=== PATIENT | male | born 1990 | race Caucasian/White ===

== ENCOUNTER 2021-08-17 22:27 | Emergency (ER) | payer OTHER ==
[~2021-08-17] VITALS: Ht 175.3 cm; Wt 79.5 kg
[2021-08-17 22:39] VITALS: TEMP 98.5
[2021-08-17 23:19] LABS: BASO # 0.1 K/mm3 (0.0-0.2); EOS # 0.2 K/mm3 (0.0-0.7); GRAN # 2.9 K/mm3 (1.4-6.5); GRAN % 48.3 % (42.2-75.2); HEMATOCRIT 37.3 % (42.0-52.0); HEMOGLOBIN 12.8 g/dl (13.5-18.0); LYMPH # 2.5 K/mm3 (1.2-3.4); LYMPH % 41.7 % (20.0-51.0); MEAN CELL VOLUME 89 fl (80.0-100.0); MEAN CORPUSCULAR HEMOGLOBIN 31 pg (27-31); MEAN CORPUSCULAR HGB CONC 34 g/dl (33.0-37.0); MEAN PLATELET VOLUME 11.1 fl (7.4-10.4); MONO # 0.4 K/mm3 (0.1-0.6); MONO % 5.7 % (1.7-9.3); PLATELET COUNT 162 K/mm3 (130-400); REDCELL DISTRIBUTION WIDTH-CV 12.9 % (11.5-14.5)
[2021-08-17 23:39] LABS: ALBUMIN 4.4 gm/dL (3.5-5.0); BILIRUBIN,TOTAL 0.4 mg/dL (0.2-1.2); CALCIUM 9.6 mg/dL (8.4-10.2); CREATININE, serum 1.1 mg/dL (0.72-1.25); POTASSIUM 3.7 mmol/L (3.5-4.5)
[2021-08-17] MEDS ORDERED: CARAFATE 1GM1 G PO (23:42)
[2021-08-17] MEDS ORDERED: PROTONIX 40MG T40 MG PO (23:42)
[2021-08-18 00:20] VITALS: BP 127/82; PULSE 66
== END 2021-08-18 00:20 | disposition home or self-care (01) ==
LOC: COL.ER 22:27
PROVIDERS: Physician Assistant
DX: D64.9 Anemia, unspecified (principal); R10.13 Epigastric pain

== ENCOUNTER → 2021-11-13 | Outpatient (CLI) | payer OTHER ==
[~2021-11-13] MED LIST: CARAFATE 1GM1 G PO; PROTONIX 40MG T40 MG PO
== END ==
LOC: COL.RAD 06:55
DX: R10.9 Unspecified abdominal pain (principal)
CPT/HCPCS: A9537